=== PATIENT | female | born 1970 | race American Indian/Alaskan Native ===

== ENCOUNTER 2016-09-08 07:33 | Outpatient (CLI) | payer MEDICAID ==
--- NOTE | 2016-09-08 10:32 | Cat Scan Report ---
CT scan of chest without IV contrast: History: This order involving the immune mechanism. Findings: No endobronchial or mediastinal mass. No mediastinal hilar or axillary adenopathy. 1.4 cm pretracheal lymph node. No pleural or pericardial effusion. Ill-defined pleural based airspace lung opacity measuring 2.8 cm in diameter. Impression: Infiltrate/pneumonia right upper lobe. Pretracheal lymph node 1.4 cm probably reactive. The
== END 2016-09-08 07:34 | disposition home or self-care (01) ==
LOC: CT 07:33
PROVIDERS: ATTEND Internal Medicine Pulmonary Disease
DX: J18.9 Pneumonia, unspecified organism (principal); D89.9 Disorder involving the immune mechanism, unspecified; R07.9 Chest pain, unspecified; R06.02 Shortness of breath
CPT/HCPCS: 71250